=== PATIENT | female | born 1995 | race Caucasian/White ===

== ENCOUNTER 2017-05-27 15:59 | Emergency (ER) | payer MEDICAID ==
[~2017-05-27] VITALS: Ht 172.7 cm; Wt 101.2 kg
[2017-05-27] MEDS ORDERED: LORazepam Inj 2mg/ml 1ml IV ONE (16:15)
[2017-05-27] MEDS ORDERED: [UNRECOGNIZED DRUG - REMARK] (16:16)
[2017-05-27] MEDS ORDERED: DEPAKOTE250 MG PO (16:16)
[2017-05-27] MEDS ORDERED: RISPERDAL0.25 MG ORAL (16:16)
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
[2017-05-27 16:32] VITALS: BP 128/78
[2017-05-27 17:13] LABS: BASOPHILS % (AUTO) 1.3 % (0.0-2.0); EOSINOPHILS % (AUTO) 1.2 % (0.0-3.0); LYMPHOCYTES % (AUTO) 30.7 % (20.0-45.0); MEAN CORPUSCULAR HEMOGLOBIN 28.7 PG (27.0-31.0); MEAN CORPUSCULAR HGB CONC 32.7 G/DL (32.0-36.0); MEAN CORPUSCULAR VOLUME 88 FL (80-99); MEAN PLATELET VOLUME 7.8 FL (6.5-10.1); MONOCYTES % (AUTO) 7.5 % (1.0-10.0); NEUTROPHILS % (AUTO) 59.3 % (45.0-75.0); PLATELET COUNT 244 K/UL (150-450); RED BLOOD COUNT 4.54 M/UL (4.20-5.40); RED CELL DISTRIBUTION WIDTH 12.6 % (11.6-14.8); WHITE BLOOD COUNT 10.4 K/UL (4.8-10.8)
[2017-05-27 17:27] LABS: ANION GAP 8 mmol/L (5-15); CALCIUM 9.3 MG/DL (8.5-10.1); CARBON DIOXIDE 28 MMOL/L (21-32); CHLORIDE 103 MMOL/L (98-107); CREATININE 0.7 MG/DL (0.55-1.30); GLOMERULAR FILTRATION RATE > 60 mL/min (>60); POTASSIUM 3.9 MMOL/L (3.5-5.1); SODIUM 139 MMOL/L (136-145)
[2017-05-27 17:30] LABS: ALANINE AMINOTRANSFERASE 23 U/L (12-78); ALBUMIN/GLOBULIN RATIO 0.9 (1.0-2.7); ALCOHOL < 3 mg/dL; ASPARTATE AMINO TRANSFERASE 14 U/L (15-37); TOTAL PROTEIN 7.9 G/DL (6.4-8.2); VALPROIC ACID 35 MCG/ML (50-100)
[2017-05-27 17:31] LABS: ACETAMINOPHEN < 10 MCG/ML (10-30)
[2017-05-27] MEDS ORDERED: Depakote 500mg tab ORAL ONE (17:45)
[2017-05-27 19:35] VITALS: BP 130/79
[2017-05-27 19:40] VITALS: BP 130/79
[2017-05-27 19:57] LABS: APPEARANCE,URINE CLOUDY; KETONES,URINE NEGATIVE (NEGATIVE); LEUKOCYTE ESTERASE ,URINE 1+ (NEGATIVE); NITRITE,URINE NEGATIVE (NEGATIVE); PH,URINE 8 (4.5-8.0); PROTEIN,URINE NEGATIVE (NEGATIVE); UROBILINOGEN,URINE NORMAL MG/DL (0.0-1.0)
[2017-05-27 20:08] LABS: AMORPHOUS SEDIMENT,UR MANY /LPF; BACTERIA,URINE MODERATE /HPF; RBC,URINE 15-20 /HPF (0 - 2); SQUAMOUS EPITHELIAL CELL,UR MODERATE /LPF (NONE/OCC)
[2017-05-27 20:09] LABS: ICTOTEST NEGATIVE
--- NOTE | 2017-05-28 10:14 | Diagnostic Imaging Report ---
Indication: Cough Technique: One view of the chest Comparison: none Findings: Patient is rotated to the right. Apparent dextrocardia is probably artifact of the rightward rotation and not real. Lungs and pleural spaces are clear. There are cholecystectomy clips Impression: No acute process This agrees with the preliminary interpretation provided by the emergency room physician
--- NOTE | 2017-05-28 19:23 | Cardiology Report ---
APPROVED REPORT EKG Measurement Heart [id number] Normal sinus rhythm Normal ECG
== END 2017-05-27 19:40 | disposition home or self-care (01) ==
LOC: EDBD 15:59 → EMR 16:50
DX: G40.909 Epilepsy, unspecified, not intractable, without status epilepticus (principal); Z79.899 Other long term (current) drug therapy; Z04.71 Encounter for examination and observation following alleged adult physical abuse; F32.9 Major depressive disorder, single episode, unspecified; F20.9 Schizophrenia, unspecified
CPT/HCPCS: 36415; 71010; 80053; 80164; 80307; 80329; 81003; 81025; 82962; 85025; 87086; 93005; 96361; 96374; 99284